=== PATIENT | male | born 1980 | race Caucasian/White ===

== ENCOUNTER 2019-08-22 13:02 | Emergency (ER) | payer OTHER ==
[2019-08-22] MEDS ORDERED: ASPIRIN 81 MG TABLET, CHEWABLE PO ONE (13:29)
--- NOTE | 2019-08-22 13:37 | ER Document Report ---
ED Medical Screen (RME) - General Chief Complaint: Palpitations Stated Complaint: PALPITATIONS Time Seen by Provider: 08/22/19 13:21 Mode of Arrival: Ambulatory Information source: Patient Notes: 39-year-old relatively healthy male with history of HTN presents to the emergency department with complaints of sharp chest pain that started earlier today with numbness to his left arm and some numbness feeling to his left jaw. Reports the sharp chest pains have gone away but still has a numb feeling with a little pressure feeling to the left side of his chest. He reports he felt short of breath with the chest pain. Patient reports that his father at 44 years old from a massive heart attack. His paternal grandfather between the ages of 37 and 44. Patient denies history of drug use. Patient denies fever vomiting diarrhea. Denies trauma. Respiratory rate even and unlabored. 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 Patient reports he was told he had high blood pressure many years ago. He was placed on medication. He reports he started exercising and monitoring his diet, his blood pressure went down so he quit taking the medications. I have greeted and performed a rapid initial assessment of this patient. A comprehensive ED assessment and evaluation of the patient, analysis of test results and completion of the medical decision making process will be conducted by additional ED providers. - Related Data Allergies/Adverse Reactions: Penicillins Allergy (Unknown, Verified 08/22/19 13:22) Physical Exam - Vital signs Vitals: Temp Pulse Resp BP Pulse Ox 98.3 F 75 16 165/122 H 99 08/22/19 13:12 08/22/19 13:12 08/22/19 13:12 08/22/19 13:12 08/22/19 13:12 Course - Vital Signs Vital signs: Temp Pulse Resp BP Pulse Ox 98.3 F 75 16 153/106 H 99 08/22/19 13:12 08/22/19 13:12 08/22/19 13:12 08/22/19 13:14 08/22/19 13:12
[2019-08-22 14:00] LABS: ABSOLUTE EOSINOPHILS # (AUTO) 0.4 10^3/uL (0.0-0.6); ABSOLUTE LYMPHOCYTES (AUTO) 2.1 10^3/uL (0.5-4.7); ABSOLUTE MONOCYTES (AUTO) 0.7 10^3/uL (0.1-1.4); ABSOLUTE NEUT (AUTO) 6.1 10^3/uL (1.7-8.2); BASOPHILS % (AUTO) 0.4 % (0-2); EOSINOPHILS % (AUTO) 4.7 % (0-6); HEMATOCRIT 47.2 % (37.9-51.0); HEMOGLOBIN 16.6 g/dL (13.5-17.0); LYMPHOCYTES % (AUTO) 21.8 % (13-45); MEAN CORPUSCULAR HEMOGLOBIN 32.1 pg (27.0-33.4); MEAN CORPUSCULAR HGB CONC 35.2 g/dL (32.0-36.0); MEAN CORPUSCULAR VOLUME 91 fl (80-97); MONOCYTES % (AUTO) 7.9 % (3-13); PLATELET COUNT 314 10^3/uL (150-450); RED BLOOD COUNT 5.18 10^6/uL (4.35-5.55); RED CELL DISTRIBUTION WIDTH 13.1 % (11.5-14.0); SEGMENTED NEUTROPHILS % (AUTO) 65.2 % (42-78); TOTAL CELLS COUNTED % (AUTO) 100 %; WHITE BLOOD COUNT 9.4 10^3/uL (4.0-10.5)
--- NOTE | 2019-08-22 14:03 | RADIOLOGY REPORT (SQ) ---
EXAM DESCRIPTION: CHEST SINGLE VIEW IMAGES COMPLETED DATE/TIME: 08/22/2019 1:52 pm REASON FOR STUDY: chest pain COMPARISON: None. EXAM PARAMETERS: NUMBER OF VIEWS: One view. TECHNIQUE: Single frontal radiographic view of the chest acquired. RADIATION DOSE: NA LIMITATIONS: None. FINDINGS: LUNGS AND PLEURA: No opacities, masses or pneumothorax. No pleural effusion. MEDIASTINUM AND HILAR STRUCTURES: No masses. Contour normal. HEART AND VASCULAR STRUCTURES: Heart normal in size. Normal vasculature. BONES: No acute findings. HARDWARE: None in the chest. OTHER: No other significant finding. IMPRESSION: NO ACUTE RADIOGRAPHIC FINDING IN THE CHEST. TECHNICAL DOCUMENTATION: JOB ID: [id number] [employer]- All Rights Reserved Reading location - IP/workstation name: [email or web address]
[2019-08-22 14:22] LABS: ALBUMIN 4.3 g/dL (3.5-5.0); ALKALINE PHOSPHATASE 61 U/L (38-126); ANION GAP 6 (5-19); ASPARTATE AMINO TRANSFERASE 37 U/L (17-59); BILIRUBIN,TOTAL 0.4 mg/dL (0.2-1.3); BLOOD UREA NITROGEN 7 mg/dL (7-20); CALCIUM 9.6 mg/dL (8.4-10.2); CARBON DIOXIDE 29 mmol/L (22-30); CHLORIDE 103 mmol/L (98-107); GLUCOSE 100 mg/dL (75-110); TOTAL PROTEIN 6.6 g/dL (6.3-8.2)
--- NOTE | 2019-08-22 14:36 | ER Document Report ---
ED General - General Chief Complaint: Chest Pain > 30 Stated Complaint: PALPITATIONS Time Seen by Provider: 08/22/19 13:21 Mode of Arrival: Ambulatory - [facility] Notes: Patient is a 39-year-old male who presents to the emergency department for evaluation of chest pain. He states he was driving back from [place] today. He developed an electrical shock type pain in his substernal region. It does not radiate. He states this would come on multiple times a minute. He states shortly after that he developed left arm numbness. He states occasionally he has a heaviness in his left elbow. He states that sometimes he feels a tightness in the left pectoralis region. None of these symptoms are new. The patient states he feels slightly short of breath. He has generally physical work, denies any chest pain or shortness of breath when he is working. He admits he is not exercising as much as he used to notes the gyms are closed. He denies any associated nausea, diaphoresis, near syncope. On further investigation the patient also states he was treated for high blood pressure in the past. He was going to be seen at an urgent care. He states he was told by his insurance company that it was "a pre-existing condition" because "the doctors messed up with the codes." He stated based on that information he no longer wanted to go to the physician, no longer wanted to pay for the co-pay, and stopped taking the medication. He states he donates plasma frequently, they check his blood pressure, and he is not aware of it being out of the normal range, but admits he is unsure. He states the last time it was checked it was in the 140s. At this time he has no shocking electrical pain in his chest. He has no tightness in his chest. He states he does feel some numbness in his arm, which again is not a new phenomenon. He also states he has occasional numbness in his left jaw. - Related Data Allergies/Adverse Reactions: Penicillins Allergy (Unknown, Verified 08/22/19 13:22) Home Medications: denies Past Medical History - General Information source: Patient - Social History Smoking Status: Former Smoker Chew tobacco use (# tins/day): No Frequency of alcohol use: None Drug Abuse: None Family History: CAD - Patient's father and grandfather with MIs in their early 40s, both fatal Patient has homicidal ideation: No - Past Medical History Cardiac Medical History: Reports: Hx Hypertension Neurological Medical History: Reports: Hx Seizures - febrile seizures childhood Review of Systems - Review of Systems EENT: See HPI Cardiovascular: See HPI Respiratory: See HPI Neurological/Psychological: See HPI Physical Exam - Vital signs Vitals: Temp Pulse Resp BP Pulse Ox 98.3 F 75 16 165/122 H 99 08/22/19 13:12 08/22/19 13:12 08/22/19 13:12 08/22/19 13:12 08/22/19 13:12 - Notes Notes: Vital signs reviewed, please refer to chart. Head is normocephalic, atraumatic. Pupils equal round, reactive to light. Neck is supple without meningismus. Heart is regular rate and rhythm. Lungs are clear to auscultation bilaterally. No skin changes noted to the chest wall or left upper extremity. Abdomen is soft, nontender, normoactive bowel sounds throughout. Extremities without cyanosis, clubbing. Posterior calves are nontender. Peripheral pulses are equal. Skin is warm and dry. Patient is awake, alert, neurological exam is nonfocal. Examination of the left upper extremity yields full range of motion of the elbow, wrist, fingers, thumb. Neurovascularly intact distally. Course - Re-evaluation Re-evalutation: 08/22/19 14:35 Patient presents to the emergency department for evaluation. He is overweight, has a former tobacco history, and a strong family history. He likely has untreated hypertension. Certainly his pain does not sound typical, as it was nonexertional, but he does have enough risk factors to warrant a significant work-up. EKG is unremarkable at this time. Awaiting troponins. Patient again is pain-free at this moment. He will be placed on the monitor, we will continue to observe. 08/22/19 18:05 Patient has remained chest pain free throughout the course of his stay. His second troponin was undetectable. I spoke with Dr. Guzmán. He agrees that with his risk factors and outpatient stress test is appropriate, and is currently setting it up to be performed tomorrow. Awaiting phone call to finalize plans. Otherwise we will discharge the patient. He has to return tomorrow to [facility] for stress testing. - Vital Signs Vital signs: Temp Pulse Resp BP Pulse Ox 98.3 F 75 23 H 143/76 H 95 08/22/19 13:23 08/22/19 13:12 08/22/19 17:01 08/22/19 17:00 08/22/19 17:01 - Laboratory Result Diagrams: 08/22/19 13:40 08/22/19 13:40 - Diagnostic Test Radiology reviewed: Reports reviewed Radiology results interpreted by me: 08/22/19 17:58 Chest X-Ray 08/22/19 13:29 IMPRESSION: NO ACUTE RADIOGRAPHIC FINDING IN THE CHEST. - EKG Interpretation by Me Additional EKG results interpreted by me: 08/22/19 14:36 Sinus mechanism with a rate of 75 bpm. Normal axis and intervals. No acute ST changes concerning for ischemia or infarction. Discharge - Discharge Clinical Impression: Chest pain Qualifiers: Chest pain type: unspecified Qualified Code(s): R07.9 - Chest pain, unspecified Condition: Stable Disposition: HOME, SELF-CARE Instructions: Chest Pain of Unclear Cause ([facility]) Additional Instructions: Your evaluation here did not show any signs of heart damage. You are to have a nuclear medicine stress test tomorrow. 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 You are to eat or drink nothing after midnight, and do not have any caffeine this evening or tomorrow morning. Please bring comfortable running shoes, as you will be on the treadmill for this test. Return to the ED with worsening or new concerning symptoms of any sort. Referrals: AJ GUZMÁN MD [ACTIVE PROVISIONAL STAFF] - Follow up as needed
[2019-08-22 18:30] VITALS: BP 135/118
--- NOTE | 2019-08-22 22:33 | EKG REPORT ---
SEVERITY:- NORMAL ECG - SINUS RHYTHM : Confirmed by: Bonita Blake MD 22-Aug-2019 22:32:56
== END 2019-08-22 18:33 | disposition home or self-care (01) ==
LOC: ER 13:02
DX: R07.9 Chest pain, unspecified (principal); R00.2 Palpitations; R20.0 Anesthesia of skin; Z88.0 Allergy status to penicillin; Z87.891 Personal history of nicotine dependence; I10 Essential (primary) hypertension
CPT/HCPCS: 36415; 71045; 80053; 84484; 85025; 93005; 93010; 99285

== ENCOUNTER → 2019-08-23 | Outpatient (CLI) | payer OTHER ==
--- NOTE | 2019-08-23 11:26 | DRAGON STRESS TEST REPORT ---
Name: Elan Soto : 84 Date: 08/23/19 The patient underwent a stress/rest, single isotope SPECT Imaging with exercise stress and gated SPECT imaging for evaluation of atypical chest pain. The patient underwent treadmill exercise using the Ryan protocol, completing 13:01 minutes and completing an estimated workload of 17.2 metabolic equivalents (METS). The test was terminated due to fatigue. The heart rate was 70 beats per minute at baseline and increased to 196 beats per minute at peak exercise, which was 107% of the maximum predicted heart rate. The rest blood pressure was 138/84 mm/Hg and increased to 194/95 mm/Hg, which is a normal response. The patient had no chest pain. The resting electrocardiogram demonstrated NSR and did not show ST-segment changes consistent with ischemia. Myocardial perfusion imaging was performed at rest following the injection of 14.59 mCi of sestamibi. At peak exercise, the patient was injected with 42.1 mCi of sestamibi and exercise was continued for at least one minute. Gating post- stress tomographic imaging was performed 60 minutes after stress. Findings The overall quality of the study is good. Raw images demonstrate GI uptake artifact in the inferior wall in the resting images. The stress images did not demonstrate any aftifacts. Left ventricular cavity is noted to be normal on the rest and stress studies. Resting SPECT images demonstrate a small sized, of mild intensity defect in the inferior wall. The stress images reveal homogeneous tracer distribution throughout the myocardium. Gated SPECT imaging reveals normal myocardial thickening and wall motion. The left ventricular ejection fraction was calculated to be 53% Impression -Myocardial perfusion imaging is normal with the above artifacts. -There is no scintigraphic evidence of ischemia or infarct. -Overall left ventricular systolic function was normal without wall motion abnormalities. -There are no prior studies for comparison. [facility]
== END ==
LOC: RAD 07:30
PROVIDERS: ATTEND Internal Medicine Cardiovascular Disease
DX: R07.89 Other chest pain (principal)
CPT/HCPCS: 93017; 78452; A9500; Q9969